=== PATIENT | female | born 1950 | race Asian ===

== ENCOUNTER 2018-05-08 06:37 | Day surgery (SDC) | payer OTHER ==
[~2018-05-08] VITALS: Ht 165.1 cm; Wt 75.3 kg
[~2018-05-08 06:37] MED LIST: ALDACTONE25 MG PO; APRESOLINE50 MG PO; ASPIRIN81 M2 PO; Fish Oil PO; LIPITOR80 MG PO; NORVASC5 MG PO; OCUVITE TABLET1 EACH PO; THERAGRAN1 TABLET PO; Zocor PO
[2018-05-08 07:52] VITALS: BP 126/70
[2018-05-08] MEDS ORDERED: OXAYDO5 MG PO (09:33)
[2018-05-08 10:30] VITALS: BP 129/69
[2018-05-08 11:20] VITALS: BP 124/58
== END 2018-05-08 11:46 | disposition home or self-care (01) ==
LOC: SDC 06:37
DX: K80.10 Calculus of gallbladder with chronic cholecystitis without obstruction (principal); K66.0 Peritoneal adhesions (postprocedural) (postinfection); Z86.010 Personal history of colon polyps; E78.5 Hyperlipidemia, unspecified; I10 Essential (primary) hypertension; R73.09 Other abnormal glucose; J45.909 Unspecified asthma, uncomplicated
CPT/HCPCS: 88304; J1100; J1885; J2250; J2405; J2710; J3010; J3475; J7120; J7643; Q0175; S0074